=== PATIENT | male | born 1960 | race Caucasian/White ===

== ENCOUNTER 2022-10-19 15:30 | Emergency (ER) | payer BC ==
[2022-10-19 15:36] VITALS: BP 170/100; PULSE 104
[2022-10-19] MEDS: Acetaminophen/HYDROcodone 325-5 MG Tab PO ONE (16:17)
== END 2022-10-19 16:47 | disposition home or self-care (01) ==
LOC: VM.ED 15:30
DX: S20.212A Contusion of left front wall of thorax, initial encounter (principal); E11.9 Type 2 diabetes mellitus without complications; Z79.82 Long term (current) use of aspirin; Z79.4 Long term (current) use of insulin; Z79.899 Other long term (current) drug therapy; W18.30XA Fall on same level, unspecified, initial encounter
CPT/HCPCS: 71101; 99283; A9270